=== PATIENT | male | born 1970 | race Caucasian/White ===

== ENCOUNTER 2019-01-24 08:50 | Day surgery (SDC) | payer BC ==
[~2019-01-24 08:50] MED LIST: PROPOFOL INJ 200 MG/20 ML VIAL IV ONE
[2019-01-24] MEDS ORDERED: PROPOFOL INJ 200 MG/20 ML VIAL IV ONE (10:39)
[2019-01-24 11:29] VITALS: BP 165/104
--- NOTE | 2019-01-24 14:23 | Operative Report ---
Operative Report DATE OF SURGERY: 01/24/19 Operative Report: The risks, benefits and alternatives of the procedure including the risks of bleeding, perforation requiring surgery have been explained to the patient in detail and informed consent has been obtained. The patient is placed in the left, lateral decubital position. Timeout was called. Propofol medication is administered. A rectal examination is done which did not reveal any masses, tears or fissures. An Olympus videoscope was introduced into the patient's rectum. The scope was then carefully advanced all the way to the cecum. The cecum was identified by the usual anatomical landmarks including the ileocecal valve as well as the appendiceal office. Photodocumentation is obtained. The scope was then sequentially pulled back via the various segments of the colon including the ascending colon, hepatic flexure, transverse colon, splenic flexure, descending colon and finally into the rectosigmoid portions of the colon. Retroflexion maneuver is performed. PREOPERATIVE DIAGNOSIS: Colorectal cancer screening POSTOPERATIVE DIAGNOSIS: Large pedunculated polyp likely corresponds to the area of the splenic flexure status post removal with snare polypectomy. The area is injected with Stephanie ink for future location if the polyp were to turn operator to be malignant OPERATION: Colonoscopy with snare polypectomy. Colonoscopy with submucosal injection of Stephanie ink SURGEON: ROVERTO ANDUJAR ANESTHESIA: LMAC TISSUE REMOVED OR ALTERED: As noted above. COMPLICATIONS: None. ESTIMATED BLOOD LOSS: None. INTRAOPERATIVE FINDINGS: As noted above. PROCEDURE: Patient tolerated the procedure well. No immediate postprocedure complications are noted. Patient discharged in good condition. Discharge date 01/24/2019. Discharge diet: Regular. Discharge activity: Regular. 2 to 3-week follow-up to discuss findings. Patient is instructed to call the office or proceed to the emergency room should there be any further proximal questions. Wait on the pathology. Depending on the pathology patient may need a surveillance next year
== END 2019-01-24 11:18 | disposition home or self-care (01) ==
LOC: END 08:50
PROVIDERS: ATTEND Internal Medicine Gastroenterology
DX: Z12.11 Encounter for screening for malignant neoplasm of colon (principal); D12.6 Benign neoplasm of colon, unspecified; F17.210 Nicotine dependence, cigarettes, uncomplicated; Z13.89 Encounter for screening for other disorder
CPT/HCPCS: 45385; 45381; 88305 ×2; J2704

== ENCOUNTER 2020-06-23 08:39 | Observation (INO) | payer BC ==
--- NOTE | 2020-06-23 08:51 | ER Document Report ---
ED General - General Chief Complaint: Slurred Speech Stated Complaint: STUTTERING,CAN'T KEEP FOCUSED Time Seen by Provider: 06/23/20 08:51 Primary Care Provider: ANTOINETTE TORRES DO [ACTIVE STAFF] - Follow up as needed TRAVEL OUTSIDE OF THE [place] IN LAST 30 DAYS: No - HPI Notes: 50-year-old male presents to the emergency room for complaints of difficulty finding his words and stuttering his words for the last 2 days. Patient states that he ignored these issues because he thought it would be getting better, however today his girlfriend forced him to come to the emergency room for evaluation. Patient denies any weakness in his arms or legs, no numbness or tingling in his arms or legs, no blurred vision, double vision, loss of vision, lightheadedness dizziness, chest pain shortness of breath, nausea, vomiting, diarrhea. No fevers or chills. 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 Denies any prior history of CVA, [place]. - Related Data Allergies/Adverse Reactions: No Known Allergies Allergy (Verified 01/24/19 08:37) Past Medical History - General Information source: Patient - Social History Smoking Status: Current Every Day Smoker - 1ppd Family History: Reviewed & Not Pertinent - Past Medical History Cardiac Medical History: Denies: Hx Coronary Artery Disease, Hx Heart Attack, Hx Hypertension Pulmonary Medical History: Denies: Hx Asthma, Hx Bronchitis, Hx COPD, Hx Pneumonia Neurological Medical History: Denies: Hx Cerebrovascular Accident, Hx Seizures Musculoskeletal Medical History: Denies Hx Arthritis Review of Systems - Review of Systems Constitutional: No symptoms reported EENT: No symptoms reported Cardiovascular: No symptoms reported Respiratory: No symptoms reported Gastrointestinal: No symptoms reported Genitourinary: No symptoms reported Male Genitourinary: No symptoms reported Musculoskeletal: No symptoms reported Skin: No symptoms reported Hematologic/Lymphatic: No symptoms reported Neurological/Psychological: See HPI Physical Exam - Vital signs Vitals: Temp 98.4 F 06/23/20 08:40 - Notes Notes: MEDICATIONS: I agree with the patient medications as charted by the RN. ALLERGIES: I agree with the allergies as charted by the RN. PAST MEDICAL HISTORY/PAST SURGICAL HISTORY: Reviewed and agree as charted by RN. SOCIAL HISTORY: Reviewed and agree as charted by RN. FAMILY HISTORY: No significant familial comorbid conditions directly related to patient complaint EXAM: Reviewed vital signs as charted by RN. PHYSICAL EXAMINATION:reviewed vital signs by RN GENERAL: Well-appearing, well-nourished and in no acute distress. HEAD: Atraumatic, normocephalic. EYES: Pupils equal round and reactive to light, extraocular movements intact, sclera anicteric, conjunctiva are normal. ENT: Nares patent, oropharynx clear without exudates. Moist mucous membranes. NECK: Normal range of motion, supple without lymphadenopathy LUNGS: Breath sounds clear to auscultation bilaterally and equal. No wheezes rales or rhonchi. HEART: Regular rate and rhythm without murmurs ABDOMEN: Soft, nontender, nondistended abdomen. No guarding, no rebound. No masses appreciated. Musculoskeletal: Normal range of motion, no pitting or edema. No cyanosis. NEUROLOGICAL: Cranial nerves grossly intact. Anomic aphasia. normal gait. Normal sensory, motor exams PERRLA, EOMI. Full motor and sensory function throug hout. 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 Tongue midline. No pronator drift. No ataxia. Neck with APROM. Raises eyebrows. Strength is 5 out of 5 in bilateral upper and lower extremities equally.speaks in fragmented sentences. no weakness on one side. Romberg gait steady able to walk straight line. PSYCH: Normal mood, normal affect. SKIN: Warm, Dry, normal turgor, no rashes or lesions noted. Course - Re-evaluation Re-evalutation: 06/23/20 14:37 Afebrile, hypertensive and in no distress. CT of head did show a old left infarct of cortical and subcortical white matter. CBC negative for leukocytosis or anemia, CMP negative for hepatic or renal dysfunction, no electrolyte disturbances. Troponin negative, EKG heart rate is 92, normal sinus rhythm, P axis 68, QRS axis 61, T axis 65. MRI of brain without contrast shows a small left paraclinoid ICA with old left frontal watershed infarct between the anterior and middle cerebral artery distributions. Questionable left intracranial vasculitis versus atherosclerotic changes left parasellar\paraclinoid ICA. Also shows acute small nonhemorrhagic cortical infarct over the left anterior temporal lobe and left frontal lobes. Consulted with Dr. Hunter Simmons, neurologist at [facility] at [address]. Dr. Simmons has reviewed all diagnostic and laboratory findings. Stating that patient did have an old stroke and there appears to be a new stroke near his old stroke. H johnny, patient did have a stroke 2 days ago. he does not feel that he needs to be seen by a neurologist at this time. that he needs to have a work-up as to why he had a stroke, recommended a CTA of head and neck, echocardiogram, to check lipids and A1c and start him on baby aspirin and follow-up outpatient with a neurologist, also recommended speech therapy if her hospital has that. Consulted with Dr. Cody Hernandez, Hospitalist at 1415 who will accept patient to IMCU on the medical service. Patient was agreeable with this plan of care and verbalized understanding of this plan of care. - Vital Signs Vital signs: Temp Pulse Resp BP Pulse Ox 98.4 F 90 15 169/93 H 100 06/23/20 08:40 06/23/20 12:00 06/23/20 13:30 06/23/20 13:30 06/23/20 12:00 - Laboratory Result Diagrams: 06/23/20 09:20 06/23/20 09:20 Laboratory results interpreted by me: 06/23/20 09:20 BUN 23 H Total Protein 6.2 L Discharge - Discharge Clinical Impression: Left-sided cerebrovascular accident (CVA), Hypertension Condition: Stable Disposition: ADMITTED OBSERVATION Admitting Provider: David (Hospitalist) Unit Admitted: IMCU Referrals: ANTOINETTE TORRES, [ACTIVE STAFF] - Follow up as needed
--- NOTE | 2020-06-23 09:17 | RADIOLOGY REPORT (SQ) ---
EXAM DESCRIPTION: CT HEAD WITHOUT IMAGES COMPLETED DATE/TIME: 06/23/2020 8:55 am REASON FOR STUDY: bed 12 stroke alert COMPARISON: None. TECHNIQUE: Axial images acquired through the brain without intravenous contrast. Images reviewed wi th bone, brain and subdural windows. Additional sagittal and coronal reconstructions were generated. Images stored on PACS. All CT scanners at this facility use dose modulation, iterative reconstruction, and/or weight based d osing when appropriate to reduce radiation dose to as low as reasonably achievable (ALARA). [facility]: Dose Right [facility]: CareDose [facility]: Dose Right [facility]: Teradose 4D [facility]: Smart Technologies RADIATION DOSE: CT Rad equipment meets quality standard of care and radiation dose reduction techniq ues were employed. CTDIvol: 53.2 mGy. DLP: 991 mGy-cm. mGy. LIMITATIONS: None. FINDINGS: VENTRICLES: Normal size and contour. CEREBRUM: Old left frontal cortical and subcortical white matter infarct. No CT evidence of large territory ischemic change, acute intracranial hemorrhage, mass effect, or mid line shift CEREBELLUM: No masses. No hemorrhage. No alteration of density. No evidence for acute infarction. EXTRAAXIAL SPACES: No fluid collections. No masses. ORBITS AND GLOBE: No intra- or extraconal masses. Normal contour of globe without masses. CALVARIUM: No fracture. PARANASAL SINUSES: No fluid or mucosal thickening. SOFT TISSUES: No mass or hematoma. OTHER: No other significant finding. IMPRESSION: Old left frontal cortical and subcortical white matter infarct. No acute findings. Report called to Dr Zavala in the emergency room, CT stroke alert 0905 hours 06/23/2020 EVIDENCE OF ACUTE STROKE: NO. COMMENT: Quality ID # [id number]: Final reports with documentation of one or more dose reduction techniques (e.g., Automated exposure control, adjustment of the mA and/or kV according to patient size, use of iterative reconstruction technique) TECHNICAL DOCUMENTATION: JOB ID: [id number] 2010 [employer]- All Rights Reserved Reading location - IP/workstation name: [id number]
--- NOTE | 2020-06-23 09:18 | RADIOLOGY REPORT (SQ) ---
EXAM DESCRIPTION: CHEST SINGLE VIEW IMAGES COMPLETED DATE/TIME: 06/23/2020 8:52 am REASON FOR STUDY: bed 12 stroke alert COMPARISON: None. EXAM PARAMETERS: NUMBER OF VIEWS: One view. TECHNIQUE: Single frontal radiographic view of the chest acquired. RADIATION DOSE: NA LIMITATIONS: None. FINDINGS: LUNGS AND PLEURA: Upper lobes are hyperlucent from obstructive lung disease. No acute infiltrates. No pleural effusion or pneumothorax. MEDIASTINUM AND HILAR STRUCTURES: No masses. Contour normal. HEART AND VASCULAR STRUCTURES: Heart normal in size. Normal vasculature. BONES: No acute findings. HARDWARE: None in the chest. OTHER: No other significant finding. IMPRESSION: Obstructive lung disease. No acute infiltrates TECHNICAL DOCUMENTATION: JOB ID: [id number] 2010 [employer] All Rights Reserved Reading location - IP/workstation name: [id number]
[2020-06-23 09:32] LABS: ABSOLUTE EOSINOPHILS # (AUTO) 0.3 10^3/uL (0.0-0.6); ABSOLUTE LYMPHOCYTES (AUTO) 2.3 10^3/uL (0.5-4.7); ABSOLUTE MONOCYTES (AUTO) 0.7 10^3/uL (0.1-1.4); ABSOLUTE NEUT (AUTO) 4.7 10^3/uL (1.7-8.2); BASOPHILS % (AUTO) 0.4 % (0-2); EOSINOPHILS % (AUTO) 3.3 % (0-6); HEMATOCRIT 44.1 % (37.9-51.0); HEMOGLOBIN 15.7 g/dL (13.5-17.0); LYMPHOCYTES % (AUTO) 28.6 % (13-45); MEAN CORPUSCULAR HEMOGLOBIN 31.4 pg (27.0-33.4); MEAN CORPUSCULAR HGB CONC 35.5 g/dL (32.0-36.0); MEAN CORPUSCULAR VOLUME 88 fl (80-97); MONOCYTES % (AUTO) 8.9 % (3-13); PLATELET COUNT 326 10^3/uL (150-450); RED BLOOD COUNT 4.99 10^6/uL (4.35-5.55); RED CELL DISTRIBUTION WIDTH 13.3 % (11.5-14.0); SEGMENTED NEUTROPHILS % (AUTO) 58.8 % (42-78); TOTAL CELLS COUNTED % (AUTO) 100 %
--- NOTE | 2020-06-23 09:40 | EKG REPORT ---
SEVERITY:- BORDERLINE ECG - SINUS RHYTHM BORDERLINE PROLONGED QT INTERVAL : Confirmed by: Vel Gardiner 23-Jun-2020 09:40:22
[2020-06-23 09:45] LABS: INTERNATIONAL RATION (INR) 0.87; PROTHROMBIN TIME 12.1 SEC (11.4-15.4)
[2020-06-23 09:46] LABS: PARTIAL THROMBOPLASTIN TIME 29.6 SEC (23.5-35.8)
[2020-06-23] MEDS ORDERED: HYDRALAZINE HCL INJ/PF 20 MG/1 ML SDV IV ONE (09:50)
[2020-06-23 09:55] LABS: ALBUMIN 3.9 g/dL (3.5-5.0); ALKALINE PHOSPHATASE 85 U/L (38-126); ANION GAP 7 (5-19); ASPARTATE AMINO TRANSFERASE 29 U/L (17-59); BILIRUBIN,DIRECT 0.3 mg/dL (0.0-0.4); BILIRUBIN,TOTAL 0.6 mg/dL (0.2-1.3); BLOOD UREA NITROGEN 23 mg/dL (7-20); CALCIUM 9.4 mg/dL (8.4-10.2); CARBON DIOXIDE 28 mmol/L (22-30); CHLORIDE 105 mmol/L (98-107); CREATINE KINASE 89 U/L (55-170); GLUCOSE 95 mg/dL (75-110); POTASSIUM 4.4 mmol/L (3.6-5.0); TOTAL PROTEIN 6.2 g/dL (6.3-8.2)
[2020-06-23 10:08] LABS: CREATINE KINASE MB 2.39 ng/mL (<4.55)
[2020-06-23 10:10] LABS: TROPONIN I < 0.012 ng/mL
--- NOTE | 2020-06-23 12:42 | RADIOLOGY REPORT (SQ) ---
EXAM DESCRIPTION: MRI HEAD WITHOUT IMAGES COMPLETED DATE/TIME: 06/23/2020 11:42 am REASON FOR STUDY: Aphasic x2 days, old infarct on CT head COMPARISON: CT brain 06/23/2020 TECHNIQUE: Multiplanar imaging includes non-contrasted T1, T2, FLAIR, and diffusion with ADC map seq uences. Images stored on PACS. LIMITATIONS: None. FINDINGS: ANATOMY: The left parasellar internal carotid artery, left paraclinoid internal carotid ar poly smaller than the right, and exhibits luminal irregularity on axial T2 image 16. Question intrac ranial vasculitis versus atherosclerotic change. CSF SPACES: Normal in size and contour. No hemorrhage. CEREBRUM: Diffusion-weighted images are positive for acute ischemic change in the left anterior tempo ral cortex and frontal perisylvian cortex, best shown on diffusion images 20 and 23. Old left frontal cortical and subcortical white matter infarct, similar compared to CT exam earlier t walter. This is in the watershed region between the anterior cerebral and middle cerebral artery, and correlates with small left para clinoid ICA. POSTERIOR FOSSA: No signal alteration. No hemorrhage. No edema, masses or mass effect. Internal eron tory canals, cerebello-pontine angles, mastoids normal. DIFFUSION IMAGING: Diffusion-weighted images are positive in the left anterior temporal cortex and fr ontal perisylvian cortex, best shown on diffusion images 20 and 23. ORBITS: No masses. Globes normal. PARANASAL SINUSES: No fluid levels. Mucosa normal. OTHER: Fluid in the bilateral mastoid air cells. IMPRESSION: Small left para clinoid ICA with old left frontal watershed infarct between the anterior and middle cerebral artery distributions. Question left intracranial vasculitis versus atherosclero tic change left parasellar/paraclinoid ICA. Acute small nonhemorrhagic cortical infarcts over the left anterior temporal lobe and left frontal lo be. EVIDENCE OF ACUTE STROKE: NO. TECHNICAL DOCUMENTATION: JOB ID: [id number] [employer]- All Rights Reserved Reading location - IP/workstation name: [id number]
[2020-06-23] MEDS ORDERED: ASPIRIN 81 MG TABLET, CHEWABLE PO ONE (14:16)
[2020-06-23] MEDS ORDERED: METOPROLOL TARTRATE 25 MG TABLET PO ONE (14:32)
[2020-06-23 14:40] LABS: CHOLESTEROL 156.52 mg/dL (0-200); TRIGLYCERIDES 77 mg/dL (<150)
[2020-06-23 14:51] LABS: DIRECT LDL 116 mg/dL (<100)
[2020-06-23] MEDS ORDERED: ACETAMINOPHEN 325 MG TABLET PO PRN (14:58)
[2020-06-23] MEDS ORDERED: MAGNESIUM HYDROXIDE SUSP 30 ML UDCUP PO PRN (14:58)
[2020-06-23] MEDS ORDERED: METOPROLOL TARTRATE PF/INJ 5 MG/5 ML SDV IV PRN (15:06)
[2020-06-23] MEDS ORDERED: LISINOPRIL 5 MG TABLET PO ONE (15:08)
[2020-06-23] MEDS ORDERED: MAG HYDROX/AL HYDROX/SIMETH SUSP 30 ML UDCUP PO PRN (15:09)
[2020-06-23] MEDS ORDERED: LORAZEPAM 0.5 MG TABLET PO PRN (15:37)
--- NOTE | 2020-06-23 15:39 | PDOC H&P ---
History of Present Illness Patient complains of: Abnormal speech History of Present Illness: SHANIQUE MALDONADO is a 50 year old male who is not followed by a physician. 2 days ago he began to notice irregular speech. This predominantly affected things that he was trying to say. He found it difficult to convey his thoughts through spoken word. He denies any headache, lightheadedness or dizziness. He denies any motor or sensory deficits. He presents with markedly elevated systolic blood pressure and an elevated LDL. On imaging there is evidence of an older watershed stroke as well as small ischemic strokes in the anterior temporal and left frontal areas. He also smokes 1 pack of cigarettes daily. Patient will be admitted to [facility]. CT angiogram of the neck and head have been ordered. Echocardiogram has been ordered. Past Medical History Cardiac Medical History: Denies: Coronary Artery Disease, Myocardial Infarction, Hypertension Pulmonary Medical History: Denies: Asthma, Bronchitis, Chronic Obstructive Pulmonary Disease (COPD), P neumonia EENT Medical History: Denies: Ears, Nose, Throat Neurological Medical History: Reports: Ischemic CVA, Other - History of ischemic stroke by imaging. Patient does not report having a st Denies: Seizures Endocrine Medical History: Denies: Diabetes Mellitus Type 2, Hypothyroidism Renal/ Medical History: Denies: Chronic Kidney Disease, Nephrolithiasis Malignancy Medical History: Reports: None GI Medical History: Denies: Cirrhosis, Gastroesophageal Reflux Disease, Hepatitis Musculoskeltal Medical History: Denies: Arthritis Skin Medical History: Reports: None Psychiatric Medical History: Reports: Tobacco Dependency Denies: Alcohol Dependency, Depression, Substance Abuse Traumatic Medical History: Reports: None Hematology: Denies: Anemia Infectious Medical History: Reports: None Past Surgical History Past Surgical History: Reports: None Social History Information Source: Patient 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 Lives with: Spouse/Significant other Smoking Status: Current Every Day Smoker - 1ppd Cigarettes Packs Per Day: 1 Electronic Cigarette use?: No Frequency of Alcohol Use: Social Hx Recreational Drug Use: No Hx Prescription Drug Abuse: No - Advance Directive Resuscitation Status: Full Code Family History Family History: Reviewed & Not Pertinent, Other - Parkinson's Parental Family History Reviewed: Yes Children Family History Reviewed: Yes Sibling(s) Family History Reviewed.: Yes Medication/Allergy Home Medications: No Home Medications 01/24/19 Allergies/Adverse Reactions: No Known Allergies Allergy (Verified 05/20/19 08:37) Review of Systems All systems: reviewed and no additional remarkable complaints except as stated Neurological: PRESENT: other - Aphasia Physical Exam Vital Signs: Temp Pulse Resp BP Pulse Ox 98.4 F 90 15 169/93 H 100 06/23/20 08:40 06/23/20 12:00 06/23/20 13:30 06/23/20 13:30 06/23/20 12:00 Intake & Output 06/22/20 06/23/20 06/24/20 06:59 06:59 06:59 Weight 72.72 kg General appearance: PRESENT: no acute distress, cooperative, well-developed Head exam: PRESENT: atraumatic, normocephalic Eye exam: PRESENT: conjunctiva pink, EOMI, PERRLA. ABSENT: scleral icterus Ear exam: PRESENT: normal external ear exam. ABSENT: bleeding, drainage Mouth exam: PRESENT: moist, tongue midline Teeth exam: ABSENT: poor dentation Throat exam: ABSENT: post pharyngeal erythema Neck exam: PRESENT: full ROM. ABSENT: carotid bruit, JVD, lymphadenopathy, thyromegaly, tracheostomy Respiratory exam: PRESENT: clear to auscultation greg, rales, symmetrical, unlabored. ABSENT: accessory muscle use, rhonchi, tachypnea, wheezes Cardiovascular exam: PRESENT: RRR, +S1, +S2. ABSENT: bradycardia, diastolic m urmur, irregular rhythm, systolic murmur, tachycardia GI/Abdominal exam: PRESENT: normal bowel sounds, soft. ABSENT: distended, guarding, tenderness Rectal exam: PRESENT: deferred Gentrourinary exam: ABSENT: indwelling catheter Extremities exam: PRESENT: full ROM. ABSENT: joint swelling, pedal edema Musculoskeletal exam: PRESENT: ambulatory, normal inspection. ABSENT: d eformity, dislocation Neurological exam: PRESENT: alert, awake, oriented to person, oriented to place, oriented to time, oriented to situation, aphasic - Expressive aphasia. ABSENT: altered Psychiatric exam: PRESENT: appropriate affect. ABSENT: agitated, anxious Focused psych exam: ABSENT: delusional, paranoid, restlessness Skin exam: PRESENT: dry, normal color, warm. ABSENT: rash Results Laboratory Results: 06/23/20 09:20 06/23/20 09:20 06/23/20 06/23/20 06/23/20 09:20 09:20 09:20 WBC 8.0 RBC 4.99 Hgb 15.7 Hct 44.1 MCV 88 MCH 31.4 MCHC 35.5 RDW 13.3 Plt Count 326 Seg Neutrophils % 58.8 Sodium 139.6 Potassium 4.4 Chloride 105 Carbon Dioxide 28 Anion Gap 7 BUN 23 H Creatinine 0.76 Est GFR ( Amer) > 60 Glucose 95 Calcium 9.4 Total Bilirubin 0.6 AST 29 Alkaline Phosphatase 85 Total Protein 6.2 L Albumin 3.9 Triglycerides 77 Cholesterol 156.52 LDL Cholesterol Direct 116 H VLDL Cholesterol 15.0 HDL Cholesterol 36 L 06/23/20 06/23/20 09:20 09:20 Creatine Kinase 89 CK-MB (CK-2) 2.39 Troponin I < 0.012 Impressions: Chest X-Ray 06/23/20 08:43 IMPRESSION: Obstructive lung disease. No acute infiltrates Head CT 06/23/20 08:43 IMPRESSION: Old left frontal cortical and subcortical white matter infarct. No acute findings. Report called to Dr Zavala in the emergency room, CT stroke alert 0905 hours 06/23/2020 EVIDENCE OF ACUTE STROKE: NO. Head MRI 06/23/20 09:19 IMPRESSION: Small left para clinoid ICA with old left frontal watershed infarct between the anterior and middle cerebral artery distributions. Question left intracranial vasculitis versus atherosclerotic change left parasellar/paraclinoid ICA. Acute small nonhemorrhagic cortical infarcts over the left anterior temporal lobe and left frontal lobe. EVIDENCE OF ACUTE STROKE: NO. Assessment and Plan - Diagnosis (1) Left-sided cerebrovascular accident (CVA) Is this a current diagnosis for this admission?: Yes Plan: 06/23/2020-evidence of old infarct on MRI. MRI shows several small areas in the left anterior temporal and left frontal lobes for ischemic stroke. Left paraclinoid artery is abnormal suggesting possible vasculitis versus atherosclerosis. Speech therapy has been ordered and aspirin therapy initiated. The patient will be admitted on the ischemic stroke protocol. CT angiogram of the head and neck are pending as is an echocardiogram. (2) Hypertension Qualifiers: Hypertension type: essential hypertension Qualified Code(s): I10 - Essential (primary) hypertension Is this a current diagnosis for this admission?: Yes Plan: 06/23/2020-systolic blood pressure was as high as 202 with a diastolic blood pressure max of 128. Pressures are improved with a dose of hydralazine and metoprolol. I have initiated low-dose lisinopril. The patient did receive a dose of metoprolol in the emergency department as well. The patient will be monitored on telemetry with serial vital signs. Would like to keep the systolic blood pressure in the 160 range initially. (3) Hypercholesterolemia Is this a current diagnosis for this admission?: Yes Plan: 06/23/2020-triglycerides are normal but the LDL is greater than 100 and the patient has a low HDL. 40 mg of atorvastatin daily has been ordered. (4) Nicotine dependence, cigarettes, uncomplicated Is this a current diagnosis for this admission?: Yes Plan: 06/23/2020-the patient smokes 1 pack of cigarettes daily. Stressed the importance of tobacco cessation. We will place a 21 mg nicotine patch daily. - Plan Summary Summary: 06/23/2020-patient admitted to [facility] on the hospitalist service. Admitted per ischemic stroke protocol. Aspirin, atorvastatin and lisinopril initiated. The patient will need to establish with a primary care provider for ongoing care. - Time Time Spent with patient: 35 or more minutes Smoking Cessation Education: 3 to 10 minutes Medications reviewed and adjusted accordingly: Yes Anticipated Discharge Disposition: Home, Self Care Anticipated Discharge Timeframe: within 48 hours
--- NOTE | 2020-06-23 15:41 | ADVANCED CARE ---
- Diagnosis (1) Left-sided cerebrovascular accident (CVA) Diagnosis Current: Yes (2) Hypertension Diagnosis Current: Yes (3) Hypercholesterolemia Diagnosis Current: Yes (4) Nicotine dependence, cigarettes, uncomplicated Diagnosis Current: Yes Attendance: Discussion was held at the bedside with the patient Resuscitation Status: Full Code Discussion: When asked about resuscitation the patient hesitated. Was unsure if it was related to the aphasia or not. He seemed somewhat disturbed. I reassured him that it had nothing to do with the acute stroke but rather it is something we ask everybody. I then took the opportunity to explain the differences with regard to resuscitation. I also provided examples as to when certain levels of resuscitation might be appropriate. At this point the patient will be a full code. Care Planning Goals: Today's discussion was focused mainly on education. I believe this is the first time the patient has ever been asked this question. Document(s) Completed: None Time Spent: 20 minutes
[2020-06-23] MEDS: NICOTINE 21 MG/24 HR PATCH.TD24 TD SCH (16:02)
--- NOTE | 2020-06-23 17:25 | RADIOLOGY REPORT (SQ) ---
EXAM DESCRIPTION: CTA HEAD IMAGES COMPLETED DATE/TIME: 06/23/2020 4:02 pm REASON FOR STUDY: new cva on MRI COMPARISON: 06/23/2020 TECHNIQUE: Post IV contrast scanning, thin section axial imaging through the brain to evaluate the a rterial structures. Source and MIP images are saved and reviewed on PACS. Advanced 3D imaging as volume-rendering, MIPs, SSD performed? yes All CT scanners at this facility use dose modulation, iterative reconstruction, and/or weight based d osing when appropriate to reduce radiation dose to as low as reasonably achievable (ALARA). [facility]: Dose Right [facility]: CareDose [facility]: Dose Right [facility]: Teradose 4D [facility]: LUMO [employer] CONTRAST TYPE AND DOSE: 70 mL Omnipaque 350- low osmolar. RENAL FUNCTION: BUN 23; creatinine 0.76 LIMITATIONS: None. FINDINGS: [place]: The left internal carotid artery is excluded at the level of the caverno us segment with opacification of the anterior and middle cerebral arteries via collateral flow from i n otherwise patent [place]. POSTERIOR CIRCULATION: The distal vertebral arteries are patent as is the basilar artery. No aneurysm . BRAIN: No gross enhancing lesions as visualized. The superior cerebral hemispheres are not included in the field of view. BONES: Intact as visualized. SINUSES: No fluid or mucosal thickening. OTHER: No other significant finding. IMPRESSION: Occlusion of the left internal carotid artery at the level of the cavernous segment with opacification of the anterior and middle cerebral arteries via collateral flow from and otherwise pa tent [place]. TECHNICAL DOCUMENTATION: JOB ID: [id number] Quality ID # [id number]: Final reports with documentation of one or more dose reduction techniques (e.g., Au tomated exposure control, adjustment of the mA and/or kV according to patient size, use of iterative reconstruction technique) 2010 [employer]- All Rights Reserved Reading location - IP/workstation name: [email or web address]
--- NOTE | 2020-06-23 17:28 | RADIOLOGY REPORT (SQ) ---
EXAM DESCRIPTION: CTA NECK IMAGES COMPLETED DATE/TIME: 06/23/2020 4:02 pm REASON FOR STUDY: new cva on MRI COMPARISON: 06/23/2020 TECHNIQUE: Axial dynamic scanning technique with dynamic contrast enhancement through the extra-scrap drop operator nial carotid and vertebral arteries. Multiplanar reconstruction. 3-D MIPS and Volume-rendered imag es acquired at the workstation and saved to PACS. Images are reviewed in soft tissue, bone, lung w indows. All CT scanners at this facility use dose modulation, iterative reconstruction, and/or weight based d osing when appropriate to reduce radiation dose to as low as reasonably achievable (ALARA). [facility]: Dose Right [facility]: CareDose [facility]: Dose Right [facility]: Teradose 4D [facility]: [employer] CONTRAST TYPE AND DOSE: contrast/concentration: Isovue 350.00 mmol/ml; Total Contrast Delivered: 70. 0 ml; Total Saline Delivered: 75.0 ml RENAL FUNCTION: GFR > 60. LIMITATIONS: None. FINDINGS: AORTIC ARCH: Normal three-vessel origin. Bilateral subclavian arteries are patent. No d issection. RIGHT CAROTIDS: Patent common, internal and external carotid arteries with less than 50% stenosis of the proximal internal carotid artery on the basis of calcified and noncalcified plaque. RIGHT VERTEBRAL: Patent. No dissection. LEFT CAROTIDS: Greater than 75% stenosis of the proximal internal carotid artery predominantly on the basis of soft plaque with a diminutive appearance distally. Patent common and external carotid odette lev. LEFT VERTEBRAL: Patent. No dissection. OTHER: No other significant finding. OTHER: 3-D reconstructions confirm findings. IMPRESSION: Greater than 75% stenosis of the left proximal internal carotid artery predominant on th e basis of smooth, soft plaque. No occlusion or dissection. COMMENT: Quality ID #[id number]: Measurements of distal internal carotid diameter were used as the denomina tor for stenosis measurement. TECHNICAL DOCUMENTATION: JOB ID: [id number] Quality ID # [id number]: Final reports with documentation of one or more dose reduction techniques (e.g., Au tomated exposure control, adjustment of the mA and/or kV according to patient size, use of iterative reconstruction technique) 2010 [email or web address]- All Rights Reserved Reading location - IP/workstation name: [email or web address]
[2020-06-23] MEDS ORDERED: ASPIRIN 81 MG TABLET, ENT COATED PO SCH (18:00)
[2020-06-23] MEDS ORDERED: ATORVASTATIN CALCIUM 40 MG TABLET PO SCH (22:00)
[2020-06-24] MEDS ORDERED: ENOXAPARIN SODIUM INJ 40 MG/0.4 ML DISP.SYRIN SUBCUT SCH (10:00)
[2020-06-24] MEDS ORDERED: METOPROLOL SUCCINATE 25 MG TAB.SR.24H PO SCH (10:00)
[2020-06-24] MEDS ORDERED: LISINOPRIL 5 MG TABLET PO SCH (10:00)
[2020-06-24 12:19] VITALS: BP 124/70
[2020-06-24] MEDS: NICOTINE 21 MG/24 HR PATCH.TD24 TD SCH (12:21)
--- NOTE | 2020-06-24 12:28 | PDOC DISCHARGE SUMMARY ---
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 Admitted per ischemic stroke protocol. Aspirin, atorvastatin and lisinopril initiated. The patient will need to establish with a primary care provider for ongoing care. - Additional Information Resuscitation Status: Full Code Discharge Diet: Cardiac Discharge Activity: Balance Activity w/Rest, Slowly Increase Activity Referrals: ANTOINETTE TORRES, [ACTIVE STAFF] - Follow up as needed Prescriptions: Atorvastatin Calcium [Lipitor 80 mg Tablet] 80 mg PO QHS #30 tablet Lisinopril [Prinivil 5 mg Tablet] 5 mg PO DAILY #30 tablet Home Medications: Aspirin [Ecotrin 81 mg EC Tablet] 81 mg PO QPM tabec 06/24/20 Atorvastatin Calcium [Lipitor 80 mg Tablet] 80 mg PO QHS #30 tablet 06/24/20 Lisinopril [Prinivil 5 mg Tablet] 5 mg PO DAILY #30 tablet 06/24/20 History of Present Illiness History of Present Illness: SHANIQUE MALDONADO is a 50 year old male who is not followed by a physician. 2 days ago he began to notice irregular speech. This predominantly affected things that he was trying to say. He found it difficult to convey his thoughts through spoken word. He denies any headache, lightheadedness or dizziness. He denies any motor or sensory deficits. He presents with markedly elevated systolic blood pressure and an elevated LDL. On imaging there is evidence of an older watershed stroke as well as small ischemic strokes in the anterior temporal and left frontal areas. He also smokes 1 pack of cigarettes daily. Patient will be admitted to [facility]. CT angiogram of the neck and head have been ordered. Echocardiogram has been ordered. Hospital Course Hospital Course: Unremarkable hospital course. Possible slight improvement in expressive aphasia. No motor or sensory deficits noted. Blood pressure is much improved. Physical Exam Vital Signs: Temp Pulse Resp BP Pulse Ox 98.1 F 92 19 124/70 97 06/24/20 11:42 06/24/20 11:42 06/24/20 11:42 06/24/20 11:42 06/24/20 11:42 Intake & Output 06/23/20 06/24/20 06/25/20 06:59 06:59 06:59 Intake Total 500 Output Total 400 Balance 100 Weight 71.3 kg General appearance: PRESENT: cooperative, mild distress, well-developed Head exam: PRESENT: atraumatic, normocephalic Respiratory exam: PRESENT: clear to auscultation greg, symmetrical, unlabored. ABSENT: prolonged expiratory phas, rales, rhonchi, tachypnea, wheezes Cardiovascular exam: PRESENT: RRR, +S1, +S2. ABSENT: bradycardia, diastolic murmur, irregular rhythm, systolic murmur, tachycardia GI/Abdominal exam: PRESENT: normal bowel sounds, soft. ABSENT: distended, guarding, tenderness Rectal exam: PRESENT: deferred Gentrourinary exam: ABSENT: indwelling catheter Extremities exam: ABSENT: pedal edema Musculoskeletal exam: PRESENT: ambulatory, full ROM, normal inspection. ABSENT: deformity, dislocation Neurological exam: PRESENT: alert, awake, oriented to person, oriented to place, oriented to time, oriented to situation, CN II-XII grossly intact, aphasic. ABSENT: altered Psychiatric exam: PRESENT: appropriate affect. ABSENT: agitated, anxious Focused psych exam: ABSENT: delusional, paranoid, restlessness Skin exam: PRESENT: dry, normal color, warm. ABSENT: erythema, rash Results Laboratory Results: WBC 8.0 10^3/uL (4.0-10.5) 06/23/20 09:20 RBC 4.99 10^6/uL (4.35-5.55) 06/23/20 09:20 Hgb 15.7 g/dL (13.5-17.0) 06/23/20 09:20 Hct 44.1 % (37.9-51.0) 06/23/20 09:20 MCV 88 fl (80-97) 06/23/20 09:20 MCH 31.4 pg (27.0-33.4) 06/23/20 09:20 MCHC 35.5 g/dL (32.0-36.0) 06/23/20 09:20 RDW 13.3 % (11.5-14.0) 06/23/20 09:20 Plt Count 326 10^3/uL (150-450) 06/23/20 09:20 Lymph % (Auto) 28.6 % (13-45) 06/23/20 09:20 Schley % (Auto) 8.9 % (3-13) 06/23/20 09:20 Eos % (Auto) 3.3 % (0-6) 06/23/20 09:20 Baso % (Auto) 0.4 % (0-2) 06/23/20 09:20 Absolute Neuts (auto) 4.7 10^3/uL (1.7-8.2) 06/23/20 09:20 Absolute Lymphs (auto) 2.3 10^3/uL (0.5-4.7) 06/23/20 09:20 Absolute Monos (auto) 0.7 10^3/uL (0.1-1.4) 06/23/20 09:20 Absolute Eos (auto) 0.3 10^3/uL (0.0-0.6) 06/23/20 09:20 Absolute Basos (auto) 0.0 10^3/uL (0.0-0.2) 06/23/20 09:20 Seg Neutrophils % 58.8 % (42-78) 06/23/20 09:20 PT 12.1 SEC (11.4-15.4) 06/23/20 09:20 INR 0.87 06/23/20 09:20 APTT 29.6 SEC (23.5-35.8) 06/23/20 09:20 Sodium 139.6 mmol/L (137-145) 06/23/20 09:20 Potassium 4.4 mmol/L (3.6-5.0) 06/23/20 09:20 Chloride 105 mmol/L (98-107) 06/23/20 09:20 Carbon Dioxide 28 mmol/L (22-30) 06/23/20 09:20 Anion Gap 7 (5-19) 06/23/20 09:20 BUN 23 mg/dL (7-20) H 06/23/20 09:20 Creatinine 0.76 mg/dL (0.52-1.25) 06/23/20 09:20 Est GFR ( Amer) > 60 (>60) 06/23/20 09:20 Est GFR (MDRD) Non-Af > 60 (>60) 06/23/20 09:20 Glucose 95 mg/dL (75-110) 06/23/20 09:20 Hemoglobin A1c % 5.1 % (4.7-6.0) 06/23/20 09:20 Calcium 9.4 mg/dL (8.4-10.2) 06/23/20 09:20 Total Bilirubin 0.6 mg/dL (0.2-1.3) 06/23/20 09:20 Direct Bilirubin 0.3 mg/dL (0.0-0.4) 06/23/20 09:20 Neonat Total Bilirubin Not Reportable 06/23/20 09:20 Neonat Direct Bilirubin Not Reportable 06/23/20 09:20 Neonat Indirect Bili Not Reportable 06/23/20 09:20 AST 29 U/L (17-59) 06/23/20 09:20 ALT 35 U/L (<50) 06/23/20 09:20 Alkaline Phosphatase 85 U/L (38-126) 06/23/20 09:20 Creatine Kinase 89 U/L (55-170) 06/23/20 09:20 CK-MB (CK-2) 2.39 ng/mL (<4.55) 06/23/20 09:20 Troponin I < 0.012 ng/mL 06/23/20 09:20 Total Protein 6.2 g/dL (6.3-8.2) L 06/23/20 09:20 Albumin 3.9 g/dL (3.5-5.0) 06/23/20 09:20 Triglycerides 77 mg/dL (<150) 06/23/20 09:20 Cholesterol 156.52 mg/dL (0-200) 06/23/20 09:20 LDL Cholesterol Direct 116 mg/dL (<100) H 06/23/20 09:20 VLDL Cholesterol 15.0 mg/dL (10-31) 06/23/20 09:20 HDL Cholesterol 36 mg/dL (>40) L 06/23/20 09:20 06/23/20 09:20 CK-MB (CK-2) 2.39 Troponin I < 0.012 Impressions: Chest X-Ray 06/23/20 08:43 IMPRESSION: Obstructive lung disease. No acute infiltrates Head CT 06/23/20 08:43 IMPRESSION: Old left frontal cortical and subcortical white matter infarct. No acute findings. Report called to Dr Zavala in the emergency room, CT stroke alert [id number] hours 06/23/2020 EVIDENCE OF ACUTE STROKE: NO. Head MRI 06/23/20 09:19 IMPRESSION: Small left para clinoid ICA with old left frontal watershed infarct between the anterior and middle cerebral artery distributions. Question left intracranial vasculitis versus atherosclerotic change left parasellar/paraclinoid ICA. Acute small nonhemorrhagic cortical infarcts over the left anterior temporal lobe and left frontal lobe. EVIDENCE OF ACUTE STROKE: NO. Head CTA 06/23/20 14:12 IMPRESSION: Occlusion of the left internal carotid artery at the level of the cavernous segment with opacification of the anterior and middle cerebral arteries via collateral flow from and otherwise patent [place]. Neck CTA 06/23/20 14:12 IMPRESSION: Greater than 75% stenosis of the left proximal internal carotid artery predominant on the basis of smooth, soft plaque. No occlusion or dissection. Plan Health Concerns: Multifocal stroke with greater than 75% left internal carotid stenosis and a 50-year-old smoker with elevated LDL and marked hypertension Plan of Treatment: Referral to vascular surgery Referral to speech therapy Initiate aspirin, atorvastatin and lisinopril therapy Encouraged tobacco cessation Goals: Treatment of left internal carotid artery stenosis Maintain well-controlled blood pressure Lifestyle modification Time Spent: Greater than 30 Minutes Stroke Is this a Stroke Patient?: Yes Stroke Pt being discharged on Anti-thrombolytic therapy?: Yes Stroke Pt being discharged on Anti-coagulation therapy?: No Reason(s) for not prescribing Anti-coagulation therapy:: Not indicated Stroke Pt being discharged on Statins?: Yes Acute Heart Failure Is this a Heart Failure Patient?: No
[2020-06-24] MEDS ORDERED: ATORVASTATIN CALCIUM 80 MG TABLET PO SCH (22:00)
[2020-06-25] MEDS ORDERED: INFLUENZA QUAD (6MOS+) 2020-21 VAC 0.5 ML SYR IM ONE (08:00)
== END 2020-06-24 14:30 | disposition home or self-care (01) ==
LOC: ER 08:39 → INTOOBSV 15:11 → EH 15:11 → 3W 16:52
PROVIDERS: ADMIT Hospitalist; ATTEND Hospitalist
DX: I63.232 Cerebral infarction due to unspecified occlusion or stenosis of left carotid arteries (principal); R47.01 Aphasia; I10 Essential (primary) hypertension; E78.00 Pure hypercholesterolemia, unspecified; J44.9 Chronic obstructive pulmonary disease, unspecified; F17.210 Nicotine dependence, cigarettes, uncomplicated
CPT/HCPCS: 93005; 99285; 96374; 36415; 82553; 82550; 85025; 85610; 85730; 80053; 84484; 83036; 80061; 70551; 71045; 70450; 70496; 70498; 93010; G0378 ×3; J0360; J3490 ×2